=== PATIENT | female | born 1960 | race Caucasian/White ===

== ENCOUNTER 2016-07-04 20:12 | Emergency (ER) | payer OTHER ==
[~2016-07-04] VITALS: Ht 180.3 cm; Wt 109.0 kg
[~2016-07-04 20:12] MED LIST: AMLO-147 PO; ASPI81TA3 GTB; ATEN100T; ATOR80TA75 PO; BENA40TA41; BYDUREON; CALC1TAB98; CALCIUM CITRATE PO; CARV25TA79 PO; COU1; COU5; DILT240C70; FLAX1000; GLYB5TAB3; INSU100C5; LEVO175T2 PO; LEVOTHYROXINE PO; LIRAGLUTIDE SC; MAGN250T24; MAGNESIUM PO; METF-480 PO; METF1000; MICHCT8025 PO; ONE A DAY WOMENS PO; POTA-57; SIMV40TA3; SITA100T8; TRIA1TAB; VITAMIN C PO; [UNRECOGNIZED DRUG - CODE]; [UNRECOGNIZED DRUG - CODE]; [UNRECOGNIZED DRUG - CODE] PO; [UNRECOGNIZED DRUG - OTHER]; [UNRECOGNIZED DRUG - OTHER] PO; nateglinide PO
[2016-07-04 21:22] VITALS: Ht 180.3 cm; Wt 109.0 kg
[2016-07-04] MEDS ORDERED: morphine 4 MG/ML VIAL IV STA (23:59)
[2016-07-04] MEDS ORDERED: LIDOCAINE/MYLANTA 40 ML BTL PO STA (23:59)
[2016-07-04] MEDS ORDERED: SOD CHLORIDE 0.9% 1,000 ML IV STA (23:59)
[2016-07-04] MEDS ORDERED: ONDANSETRON 4 MG INJ IV STA (23:59)
[2016-07-05 00:57] LABS: ADD SCAN DIFF NO
[2016-07-05 01:00] LABS: BASOPHILS % 0.3 % (0.0-2.0); EOSINOPHILS # 0.1 10^3/ul (0.0-0.5); EOSINOPHILS % 1.2 % (0.0-7.0); HEMATOCRIT 39.6 % (37.0-47.0); HEMOGLOBIN 13.1 g/dl (12.0-16.0); LYMPHOCYTES # 0.9 10^3/ul (0.8-2.9); LYMPHOCYTES % 12.1 % (15.0-51.0); MEAN CORPUSCULAR HEMOGLOBIN 29.4 pg (29.0-33.0); MEAN CORPUSCULAR HGB CONC 33.1 g/dl (32.0-37.0); MEAN CORPUSCULAR VOLUME 88.8 fl (82.0-101.0); MEAN PLATELET VOLUME 11.1 fl (7.4-10.4); MONOCYTE # 0.7 10^3/ul (0.3-0.9); MONOCYTES % 8.4 % (0.0-11.0); NEUTROPHILS % 77.7 % (39.0-77.0); PLATELET COUNT 184 10^3/UL (140-415); RED BLOOD COUNT 4.46 10^6/ul (4.20-5.40); RED CELL DISTRIBUTION WIDTH 13.7 % (11.5-14.5); WHITE BLOOD COUNT 7.7 10^3/ul (4.8-10.8)
[2016-07-05 01:09] LABS: INR 0.9; PROTIME 12.1 Sec (12.2-14.2); PT RATIO 0.9
[2016-07-05 01:10] LABS: PARTIAL THROMBOPLASTIN TIME 25.8 Sec (25.0-35.0)
[2016-07-05 01:20] LABS: ADD UMIC YES; UR BLOOD (Dip) NEGATIVE (NEGATIVE); UR CLARITY SLIGHTLY CLOUDY (CLEAR); UR COLOR YELLOW (YELLOW); UR GLUCOSE (Dip) NEGATIVE (NEGATIVE); UR KETONES (Dip) TRACE (NEGATIVE); UR LEUKOCYTE ESTERASE (Dip) NEGATIVE (NEGATIVE); UR NITRITE (Dip) NEGATIVE (NEGATIVE); UR TOTAL PROTEIN (Dip) TRACE (NEGATIVE); UR UROBILINOGEN (Dip) 0.2 E.U./dL (0.1-1.0)
[2016-07-05 01:23] LABS: ALBUMIN 4.9 g/dl (3.3-4.9); ALBUMIN/GLOBULIN RATIO 1.63; BILIRUBIN,INDIRECT 0.7 mg/dl (0-1.1); BILIRUBIN,TOTAL 0.7 mg/dl (0.2-1.3); CALCIUM 10.1 mg/dl (8.4-10.2); CREATININE 0.8 mg/dl (0.44-1.00); POTASSIUM 4.1 mmol/L (3.5-5.1); TOTAL PROTEIN 7.9 g/dl (6.1-8.1)
[2016-07-05 01:28] LABS: UR BILIRUBIN (Dip) NEGATIVE (NEGATIVE)
[2016-07-05 01:33] LABS: UR SQUAMOUS EPITHELIAL CELL MANY; URINE RBCS 0-2 /HPF (0)
[2016-07-05 01:34] LABS: UR BACTERIA OCCASIONAL
--- NOTE | 2016-07-05 01:47 | ERD ---
ER Documentation Chief Complaint Date/Time DATE: 07/05/16 TIME: 01:44 Chief Complaint MID AP TODAY, S/P DENTAL WORK TODAY. +NAUSEA DENIES DIARRHEA/VOMITING HPI This is a 55, epigastric abdominal pain today status post dental work. She had mild nausea but no vomiting or diarrhea. No fevers no chills. Pain is mild to moderate intensity. No other current complaints. ROS All systems reviewed and are negative except as per history of present illness. Medications Home Meds Reported Medications [One A Day Womens] No Conflict Check, 1 TAB PO DAILY 02/05/13 Cholecalciferol (Vitamin D3) 1,000 Unit Tablet, 1000 UNIT PO DAILY 02/05/13 [Calcium Citrate] No Conflict Check, 400 MG PO DAILY 02/05/13 [Vitamin C] No Conflict Check, 1 TAB PO DAILY 02/05/13 [Magnesium] No Conflict Check, 500 MG PO DAILY 02/05/13 [Levothyroxine] No Conflict Check, 200 MCG PO DAILY 02/05/13 [K Tab] No Conflict Check, 10 MEQ PO DAILY 07/27/12 [nateglinide] No Conflict Check, 120 MG PO TID 07/27/12 Metformin* (Glucophage*) 850 Mg Tablet, 850 MG PO TID 07/27/12 Aspirin (Aspirin) 81 Mg Chew, 81 MG GTB DAILY 07/27/12 Atorvastatin* (Atorvastatin*) 80 Mg Tablet, 80 MG PO DAILY 07/27/12 Amlodipine Besylate* (Amlodipine Besylate*) 10 Mg Tablet, 10 MG PO DAILY 07/27/12 Carvedilol* (Carvedilol*) 25 Mg Tablet, 25 MG PO BID 07/27/12 Telmisartan-Hydrochlorothiazide (Micardis HCT) 1 Tab Tab, 1 TAB PO DAILY 07/27/12 Flaxseed (Flaxseed Oil) 1,000 Mg Capsule 03/22/10 Allergies Allergies: Coded Allergies: Codeine (Verified Allergy, Intermediate, 03/22/10) Penicillins (Verified Allergy, Intermediate, 03/22/10) PMhx/Soc History of Surgery: Yes (cholecystectomy, foot surgery, right ovary cyst removed, thyroidectomy) Anesthesia Reaction: No Hx Neurological Disorder: No Hx Respiratory Disorders: No Hx Cardiac Disorders: Yes (htn ) Hx Psychiatric Problems: No Hx Miscellaneous Medical Probl: Yes (Lumbago) Hx Alcohol Use: No Hx Substance Use: No Hx Tobacco Use: Yes (used to stop in 2005) Smoking Status: Current every day smoker Physical Exam Vitals Vital Signs Date Time Temp Pulse Resp B/P Pulse Ox O2 Delivery O2 Flow Rate FiO2 07/05/16 00:31 98.7 89 20 125/73 99 Room Air 07/04/16 21:22 99.0 93 18 117/68 98 Physical Exam Const: [] Head: Atraumatic Eyes: Normal Conjunctiva ENT: Normal External Ears, Nose and Mouth. Neck: Full range of motion..~ No meningismus. Resp: Clear to auscultation bilaterally Cardio: Regular rate and rhythm, no murmurs Abd: Soft, non tender, non distended. Normal bowel sounds Skin: No petechiae or rashes Back: No midline or flank tenderness Ext: No cyanosis, or edema Neur: Awake and alert Psych: Normal Mood and Affect Result Diagram: 07/05/16 0022 07/05/16 0022 Results 24 hrs Laboratory Tests Test 07/04/16 23:22 07/05/16 00:22 Urine Color YELLOW Urine Clarity SLIGHTLY CLOUDY Urine pH 5.5 Urine Specific [place] >=1.030 Urine Ketones TRACE Urine Nitrite NEGATIVE Urine Bilirubin NEGATIVE Urine Urobilinogen 0.2 E.U./dL Urine Leukocyte Esterase NEGATIVE Urine Microscopic RBC 0-2/HPF Urine Microscopic WBC 0-2/HPF Urine Squamous Epithelial Cells MANY Urine Bacteria OCCASIONAL Urine Hyaline Casts MODERATE Urine Granular Casts OCCASIONAL Urine Hemoglobin NEGATIVE Urine Glucose NEGATIVE% Urine Total Protein TRACE White Blood Count 7.710^3/ul Red Blood Count 4.4610^6/ul Hemoglobin 13.1g/dl Hematocrit 39.6% Mean Corpuscular Volume 88.8fl Mean Corpuscular Hemoglobin 29.4pg Mean Corpuscular Hemoglobin Concent 33.1g/dl Red Cell Distribution Width 13.7% Platelet Count 32358^3/UL Mean Platelet Volume 11.1fl Neutrophils % 77.7% Lymphocytes % 12.1% Monocytes % 8.4% Eosinophils % 1.2% Basophils % 0.3% Nucleated Red Blood Cells % 0.0/100WBC Neutrophils # 6.010^3/ul Lymphocytes # 0.910^3/ul Monocytes # 0.710^3/ul Eosinophils # 0.110^3/ul Basophils # 0.010^3/ul Nucleated Red Blood Cells # 0.010^3/ul Prothrombin Time 12.1Sec Prothrombin Time Ratio 0.9 INR International Normalized Ratio 0.90 Activated Partial Thromboplast Time 25.8Sec Sodium Level 140mmol/L Potassium Level 4.1mmol/L Chloride Level 102mmol/L Carbon Dioxide Level 26mmol/L Anion Gap 16 Blood Urea Nitrogen 32mg/dl Creatinine 0.80mg/dl Glucose Level 188mg/dl Calcium Level 10.1mg/dl Total Bilirubin 0.7mg/dl Direct Bilirubin 0.00mg/dl Indirect Bilirubin 0.7mg/dl Aspartate Amino Transf (AST/SGOT) 361IU/L Alanine Aminotransferase (ALT/SGPT) 252IU/L Alkaline Phosphatase 87IU/L Total Protein 7.9g/dl Albumin 4.9g/dl Globulin 3.00g/dl Albumin/Globulin Ratio 1.63 Lipase 162U/L Current Medications Medications (Trade) Dose Ordered Sig/[place] Route PRN Reason Start Time Stop Time Status Last Admin Dose Admin Sodium Chloride (NS) 1,000 ml @ 1,000 mls/hr Q1H STAT IV 07/04/16 23:59 07/05/16 00:58 DC 07/05/16 00:32 Morphine Sulfate (morphine) 4 mg ONCE STAT IV 07/04/16 23:59 07/05/16 00:06 DC 07/05/16 00:31 Ondansetron HCl (Zofran Inj) 4 mg ONCE STAT IV 07/04/16 23:59 07/05/16 00:06 DC 07/05/16 00:31 Miscellaneous Medication (Gi Cocktail (2)) 40 ml ONCE STAT PO 07/04/16 23:59 07/05/16 00:06 DC 07/05/16 00:31 Procedures/MDM Medical decision-makin-year-old female with epigastric abdominal pain is since resolved and she does have mild elevation in LFTs. At this point is stable for outpatient management tolerating p.o. and is pain-free. She is to follow-up in 8 hours for serial abdominal exams Departure Diagnosis: Primary Impression: Abdominal pain Abdominal location: epigastric Qualified Code: R10.13 - Epigastric pain Condition: Stable ADELINE FLORES Jul 05, 2016 01:47
[2016-07-05] MEDS ORDERED: ONDA4TAB14 PO (01:51)
[2016-07-05 02:22] VITALS: BP 109/53; PULSE 79; RESP 20; TEMP 98
== END 2016-07-05 02:22 | disposition home or self-care (01) ==
LOC: E/R 20:12
DX: R10.13 Epigastric pain (principal); I10 Essential (primary) hypertension; F17.210 Nicotine dependence, cigarettes, uncomplicated; Z79.82 Long term (current) use of aspirin
CPT/HCPCS: 36415; 80053; 81001; 81003; 83690; 85025; 85610; 85730; 96374; 96375; 99284; J2270; J2405; J7030